=== PATIENT | male | born 1965 | race Caucasian/White ===

== ENCOUNTER 2019-10-25 13:49 | Emergency (ER) | payer MEDICARE, MEDICAID ==
--- NOTE | 2019-10-25 14:49 | RAD ---
Left knee 4 views: 10/25/2019 COMPARISON: None HISTORY: Pain FINDINGS: No fracture or dislocation. No radiopaque foreign body or subcutaneous gas. No knee joint e ffusion noted. There is soft tissue swelling suspected anteriorly overlying the patella, the region of the distal quadriceps tendon, and in the region of the patellar tendon. IMPRESSION: Nonspecific anterior soft tissue swelling. This could be related to infection/inflammatio n and or trauma. No associated fracture or dislocation.
[2019-10-25] MEDS ORDERED: Ketorolac Tromethamine 30 MG/ML VIAL ONE (15:20)
--- NOTE | 2019-10-25 16:09 | ULT ---
Exam:Leftlower extremity venous ultrasound with Doppler HISTORY: Leftlower extremity swelling COMPARISON: None TECHNIQUE: Grayscale, color flow, Doppler imaging and spectral wave muscle performed left lower extre mity venous system FINDINGS: There is compressibility, presence of flow and augmentation in the common femoral vein, femoral vein and popliteal vein. There is flow in the posterior tibial vein. There is flow in the greater saphenous vein and profunda femoral vein IMPRESSION: No thrombus in the left lower extremity deep venous system.
[2019-10-25] MEDS ORDERED: Lidocaine 1% w/Epinephrine 1:100K 20 ML VIAL ONE (16:44)
[2019-10-25 18:35] LABS: RBC Count-Automated (BF) 3124 /cu.mm; WBC/Nucleated-Auto (BF) 19181 uL
[2019-10-25 18:36] LABS: BF Color Yellow; Body Fluid Source Synovial Fluid; Clarity Cloudy/Turbid (Clear); Tube # EDTA
[2019-10-25 18:42] LABS: BF Segmented Neutrophils 82 %; Cell Count Non Hematic 18 %
== END 2019-10-25 19:55 | disposition home or self-care (01) ==
LOC: ERS 13:49
DX: M10.9 Gout, unspecified (principal); J45.909 Unspecified asthma, uncomplicated; F41.9 Anxiety disorder, unspecified; F32.9 Major depressive disorder, single episode, unspecified; F25.9 Schizoaffective disorder, unspecified; Z87.891 Personal history of nicotine dependence
CPT/HCPCS: 20610; 82945; 85060; 87070; 87205; 89051; 89060; 96372; J1885

== ENCOUNTER 2019-11-07 09:54 | Emergency (ER) | payer MEDICARE, MEDICAID ==
[2019-11-07 10:47] LABS: #Eosinphils 0.1 thou/uL (0.0-0.7); #Lymphocytes 1.6 thou/uL (1.20-3.40); #Monocytes 0.8 thou/uL (0.11-0.59); #Neutrophils 9.7 thou/uL (1.40-6.50); %Basophils 0.4 % (0.0-1.0); %Lymphocytes 13.3 % (21.0-51.0); %Monocytes 6.7 % (0.0-10.0); %Neutrophils 78.5 % (42.0-75.0); Hemoglobin 10.1 g/dL (14.0-18.0); Mean Corpuscular HGB CONC 32.3 g/dL (32.0-36.0); Mean Corpuscular Hemoglobin 29.2 pg (27.0-31.0); Mean Corpuscular Volume 90.4 fL (78.0-98.0); Mean Platelet Volume 6.2 fL (7.4-10.4); Platelet Count 675 thou/uL (130-400); RBC Distribution Width 13.3 % (11.5-14.5); Red Blood Cell (RBC) Count 3.45 mill/uL (4.70-6.10); White Blood Cell (WBC) Count 12.3 thou/uL (4.8-10.8)
--- NOTE | 2019-11-07 10:48 | ULT ---
EXAM: Left lower extremity venous ultrasound HISTORY: Left lower extremity pain and edema COMPARISON: 10/25/2019 TECHNIQUE: Multiplanar grayscale and color Doppler images were obtained in a left lower extremity silvia ous ultrasound. Spectral analysis of the Doppler waveforms were performed. FINDINGS: The common femoral vein, profunda femoral vein, superficial femoral vein, and popliteal vei n are normal in appearance without visible thrombus. These vessels demonstrate normal compression, flow, and augmentation. The posterior tibial vein and greater saphenous vein are patent without evidence of thrombus. IMPRESSION: No evidence of DVT.
[2019-11-07 11:06] LABS: ALT (SGPT) 29 U/L (8-55); AST (SGOT) 16 U/L (5-34); Albumin 3.1 g/dL (3.5-5.0); Alkaline Phosphatase 97 U/L (40-110); Anion Gap 15 mmol/L (10-20); BUN (Urea Nitrogen) 10 mg/dL (8.4-25.7); Bilirubin, Total Less than 0.2 mg/dL (0.2-1.2); Calc. Creatinine Clearance 0 mL/min (70-130); Calcium 8.4 mg/dL (7.8-10.44); Carbon Dioxide 24 mmol/L (22-29); Chloride 101 mmol/L (98-107); Estimated GFR-MDRD Greater than 90; Globulin 3.9 g/dL (2.4-3.5); Glucose 108 mg/dL (70-105); Potassium 4.2 mmol/L (3.5-5.1); Sodium 136 mmol/L (136-145)
--- NOTE | 2019-11-07 12:09 | RAD ---
LEFT TIBIA AND FIBULA 2 VIEWS: Date: 11/07/2019 HISTORY: Pain and swelling. History of gout. FINDINGS: No signs of fracture. I do not see any joint abnormalities of the knee or ankle. IMPRESSION: Unremarkable left tibia and fibula. POS: RALPH
--- NOTE | 2019-11-07 12:15 | RAD ---
LEFT KNEE 2 VIEWS: HISTORY: Knee pain. History of gout. FINDINGS: Suggestion of some minimal medial compartment narrowing. Minimal joint effusion is seen. No erosive bony change. IMPRESSION: Minimal medial compartment narrowing. No definite acute bony changes. POS: RALPH
== END 2019-11-07 12:40 | disposition home or self-care (01) ==
LOC: ERS 09:54
DX: L03.116 Cellulitis of left lower limb (principal); J45.909 Unspecified asthma, uncomplicated; F41.9 Anxiety disorder, unspecified; F32.9 Major depressive disorder, single episode, unspecified; F25.9 Schizoaffective disorder, unspecified; F17.290 Nicotine dependence, other tobacco product, uncomplicated; Z79.899 Other long term (current) drug therapy
CPT/HCPCS: 36415; 80053; 85025; 85379